=== PATIENT | male | born 1930 | race Caucasian/White ===

== ENCOUNTER → 2016-08-09 | Outpatient (POV) | LOC: OUTPT 00:01 | PROVIDERS: ATTEND Otolaryngology | DX: H91.90 Unspecified hearing loss, unspecified ear (principal) | CPT/HCPCS: 92557; 92567 ==

== ENCOUNTER 2017-02-07 15:00 | Outpatient (RCR) ==
--- NOTE | 2017-01-31 10:31 | RS.OPPTEV2 ---
Date of Note: 01/29/17 Visit #: 1 Date of Evaluation: 01/29/17 Payer Source: MEDICARE Treatment Diagnosis: Gait abnormality, LE weakness, recent falls Current Subjective/complaints:: Mr. Bruno reports his family thinks he is having trouble walking. Admits to having 3-4 falls, one in the past month. States he is using a rolling walker for safety, because he does not have confidence in his walking. States he performs several exercises every day and [place] [facility] Reports using a rolling walker in his apartment and in the community. States he continues to drive. Reports he knows that he does not clear his feet well when walking. He lives [place] [facility]. He denies any vision problems or dizziness. He asks if he could be shown exercise to work on at home. 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 Smoking Status: Never smoker Hx Home Medications: None Patient's Goals: His goal is to gain strength in his legs and walk with increased safety. Functional Outcome Measure Tinetti: 13 (13/28=53.6% impairment) - G Codes & Severity Modifier G Codes & Modifier: Mob current Ck. Mob goal CJ Source of G Code score: Tinetti Assessment Observation - Observation Posture: Forward Head, Rounded Shoulders, Decreased Lumbar Lordosis Gait - Gait Pattern Gait Comments: Patient ambulates with a rolling walker. He demonstrates a flexed forward posture, decreased stride length, decreased step length, a Narrow ZHEN, inconsistent foot clearance during swing phase, and decreased heelstrike bilaterally. Without an assistive device, w/ TRAPPER BIRD, he demonstrates the above deviations as well as a more flexed posture and lacks reciprocal arm swing. General Range of Motion: UE and LE AROM is WFL's. Muscle Strength: Muscle strength throughout right LE is 4+/5. Left LE is 4/5 at the hip, 4 to 4+/5 knee, 4/5 ankle. Sensation - Sensation Right Lower Extremity: Intact/Normal Left Lower Extremity: Intact/Normal Balance - Sitting Balance Static Sitting Balance: Good Dynamic Sitting Balance: Good - Standing Balance Static Standing Balance: Good (-) Dynamic Standing Balance: Fair - Comments Balance Assessment Comments: Decreased balance reaction to posterior displacement in standing. Coordination - Tests Bilateral Heel to Gooden: Normal/Intact Toe Tapping: Normal/Intact Interventions - Exercise/Activities/Manual Therapy Exercises/Activities: Patient instructed in exercises to begin at home: seated hip flexion, supine SLR's, seated trunk anterior/posterior weight shifting. Manual Therapy: NA HOME EXERCISE PROGRAM: seated hip flexion, supine SLR's, seated trunk anterior/ posterior weight shifting. - Charges Total Direct Minutes: 55 mins Total Treatment Time: 55 mins Procedures billed for this date of service:: EVAL medium complexity Assessment Assessment: Patient presents to therapy with a diagnosis of altered gait. He reports leg weakness, the need for a rolling walker to avoid falling, and concern of his children about his safety with walking. He has had a history of falls, with a recent fall in the past 30 days. He demonstrates weakness in the left LE and several gait deviations with ambulation. He presents to be at a high risk for falls per Tinetti Assessment. Discussed coming to therapy for a few visits to focus on safety and also giving him exercises to work on specific areas that will improve his mobility and ambulation. He demonstrates potential to benefit from strengthening and education to address the factors that put him at a high risk for falls. Patient Education: Education of diagnosis, Home Exercise Program, Home Safety, Activity Modification, Education of Plan of Care Rehab Potential: Good Short Term Goals Goal #1: Patient independent in basic HEP. Goal to be met by: 02/13/17 Goal #2: Left hip and ankle strength 4+/5. Goal to be met by: 02/13/17 Goal #3: Pt will demo. consistent foot clearance during ambulation in the department Goal to be met by: 02/13/17 Urban Designer Goals Goal #1: Pt knows HEP and to continue ex's to maintain functional level at D/C. Goal to be met by: 03/11/17 Goal #2: Score on Tinetti Assessment improved to 20/28. Goal to be met by: 03/11/17 Goal #3: Pt will amb. community distances with RW with good safety. Goal to be met by: 03/11/17 Goal #4: Pt will report improved confidence in safety with ambulation. Goal to be met by: 03/11/17 Plan - Treatment to be Provided Procedures: Therapeutic Exercises, Therapeutic Activity, Neuromuscular Rehab, Patient Education Modalities: No Modalities - Treatment Plan Frequency: 2 X week Duration: 4 weeks ORDER # VISITS AND/OR THROUGH DATE: 03/11/17 - Treatment Code (1) Gait abnormality Comments: R26.9 (2) Leg weakness Qualifiers: Laterality: bilateral Qualified Description: Weakness of both lower extremities Qualifier Code(s): (R29.898) Other symptoms and signs involving the musculoskeletal system (3) History of fall within past 90 days Comments: Z91.81
--- NOTE | 2017-02-02 11:37 | RS.OPPTDN ---
Subjective Date of Note: 02/02/17 Visit #: 2 Date of Evaluation: 01/29/17 Payer Source: MEDICARE Treatment Diagnosis: Gait abnormality, LE weakness, recent falls Current Subjective/complaints:: Patient reports he is working on HEP and feels like the added exercises today will help his strength and balance. Patient is adamant about only attending one more session as he feels he should be able to continue HEP. Interventions - Exercise/Activities/Manual Therapy Exercises/Activities: Began with mat exercises with SLR, alt hip flexion, isometric hip add. Reviewed sitting hip flexion and weight shifting. Began green theraband for scapular retraction in sitting. In standing at handrail, mini-squats, marching, and toe-ups. Reviewed safety with gait with RW and with transfers. Discussed postural correction. Patient given copies of new exercises for HEP and therabands. Total minutes of Exercise: 24mins Manual Therapy: NA HOME EXERCISE PROGRAM: seated hip flexion, supine SLR's, seated trunk anterior/ posterior weight shifting. In supine alt hip flexion, isometric hip flexion, and isometric hip add. In standing at kitchen counter, mini-squats, marching, and toe-ups. - Charges Total Direct Minutes: 24mins Total Treatment Time: 30mins Procedures billed for this date of service:: EX2 Assessment: Patient attentive with education of HEP, balance, and safety. He is motivated to be consistent with HEP. Patient Education: Education of diagnosis, Home Exercise Program, Home Safety, Activity Modification Patient demonstrates compliance with HEP?: Yes Short Term Goals Goal #1: Patient independent in basic HEP. Goal to be met by: 02/13/17 (75%) Progress towards Goal:: Progressing Goal #2: Left hip and ankle strength 4+/5. Goal to be met by: 02/13/17 Progress towards Goal:: Progressing Goal #3: Pt will demo. consistent foot clearance during ambulation in the department Goal to be met by: 02/13/17 Progress towards Goal:: Progressing Lifestyle Coordinator Goals Goal #1: Pt knows HEP and to continue ex's to maintain functional level at D/C. Goal to be met by: 03/11/17 Progress towards goal: Progressing Goal #2: Score on Tinetti Assessment improved to 20/28. Goal to be met by: 03/11/17 Goal #3: Pt will amb. community distances with RW with good safety. Goal to be met by: 03/11/17 Progress towards goal: Progressing Goal #4: Pt will report improved confidence in safety with ambulation. Goal to be met by: 03/11/17 Progress towards goal: Progressing Comments: Has increased confidence with RW. Plan PLAN OF CARE EXPIRES ON:: 03/11/17 ORDER # VISITS AND/OR THROUGH DATE: 03/11/17 PLAN: Progress Exercises (See patient next week to review and progress HEP.)
--- NOTE | 2017-02-07 15:54 | RS.OPPTDN ---
Subjective Date of Note: 02/07/17 Visit #: 3 Date of Evaluation: 01/29/17 Payer Source: MEDICARE Treatment Diagnosis: Gait abnormality, LE weakness, recent falls Current Subjective/complaints:: Patient reports he is working on current HEP and feels he can continue on his own. States he mainly wanted a good HEP and feels he is ready for discharge. Interventions - Exercise/Activities/Manual Therapy Exercises/Activities: Mat exercises with SLR, alt hip flexion, isometric hip add. Green theraband for resistive hip abduction. Reviewed sitting hip flexion and weight shifting. Reveiwed standing mini-squats, marching, and toe-ups. Discussed safety with gait with RW and with transfers. Total minutes of Exercise: 20mins Manual Therapy: NA HOME EXERCISE PROGRAM: seated hip flexion, supine SLR's, seated trunk anterior/ posterior weight shifting. In supine alt hip flexion, isometric hip flexion, and isometric hip add. In standing at kitchen counter, mini-squats, marching, and toe-ups. - Objective Findings Observations,measurements,etc.: FOM scale not reassessed as patient requests early discharge with HEP. - Charges Total Direct Minutes: 20mins Total Treatment Time: 20mins Procedures billed for this date of service:: EX Assessment: Patient requests to stop PT at this time as he feels he can continue basic HEP. Patient Education: Home Exercise Program, Home Safety, Activity Modification Patient demonstrates compliance with HEP?: Yes Short Term Goals Goal #1: Patient independent in basic HEP. Goal to be met by: 02/13/17 (100%) Progress towards Goal:: Met Goal #2: Left hip and ankle strength 4+/5. Goal to be met by: 02/13/17 Progress towards Goal:: Progressing Goal #3: Pt will demo. consistent foot clearance during ambulation in the department Goal to be met by: 02/13/17 Progress towards Goal:: Met Alf Goals Goal #1: Pt knows HEP and to continue ex's to maintain functional level at D/C. Goal to be met by: 03/11/17 (100%) Progress towards goal: Met Goal #2: Score on Tinetti Assessment improved to 20/28. Goal to be met by: 03/11/17 Comments: Not assessed Goal #3: Pt will amb. community distances with RW with good safety. Goal to be met by: 03/11/17 Progress towards goal: Progressing Goal #4: Pt will report improved confidence in safety with ambulation. Goal to be met by: 03/11/17 Progress towards goal: Met Plan PLAN OF CARE EXPIRES ON:: 03/11/17 ORDER # VISITS AND/OR THROUGH DATE: 03/11/17 PLAN: Plan for Discharge (Discharge at patient request. Patient to continue HEP. )
--- NOTE | 2017-02-12 14:54 | RS.QUICKDC ---
Discharge from PT Date of Discharge: 02/07/17 Number of Visits: 3 Reason for Discharge: Patient insisted on attending therapy only for HEP intruction. States he feels he is independent with exercises and will continue them on his own. He demonstrates good safety awareness with ambulation with his RW and does demonstrate the ability to perform HEP independently. Demonstrates no change of G codes: Mobilty goal CJ, Mobility D/C CK. Patient discharged at this time with HEP per his request.
== END 2017-02-12 ==
PROVIDERS: ATTEND Family Medicine
DX: R26.9 Unspecified abnormalities of gait and mobility (principal)

== ENCOUNTER 2017-12-24 06:41 | Day surgery (SDC) ==
[2017-12-24] MEDS: TETRACAINE 0.5% UNIT-DOSE OP PRN ×3 (07:23→08:13)
[2017-12-24] MEDS: AK-DILATE 10% OPTH SOL OP PRN ×3 (07:23→07:33)
[2017-12-24] MEDS: CYCLOGYL 2% OPTH OP PRN ×3 (07:23→07:33)
[2017-12-24] MEDS: OCUFEN 0.03% OPTH SOL OP PRN ×2 (07:24→07:38)
[2017-12-24] MEDS ORDERED: LIDOCAINE 1% 20 ML MDV ID STA (07:25)
[2017-12-24 07:37] VITALS: BP 133/73
[2017-12-24] MEDS ORDERED: DIAMOX PO STA ×4 (07:38→15:43)
[2017-12-24] MEDS ORDERED: BETADINE OPTH PREP OP ONE (07:38)
[2017-12-24] MEDS ORDERED: SUBLIMAZE ONE (08:10)
[2017-12-24] MEDS ORDERED: VERSED ONE (08:10)
[2017-12-24] MEDS ORDERED: LIDOCAINE HCL 1% SDV INJ PRN (08:20)
[2017-12-24] MEDS ORDERED: ADRENALIN 1:1000 SDV IR STA (08:20)
[2017-12-24] MEDS ORDERED: BSS WITH EPINEPHRINE OP ONE (08:21)
[2017-12-24] MEDS ORDERED: DIAMOX ONE (08:40)
[2017-12-24] MEDS ORDERED: DIAMOX PO ONE (09:09)
[2017-12-24 13:07] VITALS: TEMP 97.6
--- NOTE | 2017-12-25 18:16 | OP ---
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 POSTOPERATIVE DIAGNOSIS: SAME. OPERATION PHACOEMULSIFICATION ASPIRATION OF CATARACT LEFT EYE. PLACEMENT OF POSTERIOR CHAMBER LENS. PHACO TIME 55.5 SECONDS AT 13% POWER. LENS MODEL TECHAYDEE [id number]. DIOPTER +20.0D. TECHNIQUE: CLEAR CORNEA. ANESTHESIA: TOPICAL ANESTHESIA W/ANESTHESIA MONITORING. OPERATIVE REPORT: Topical anesthesia consisting of Tetracaine was applied to the cornea and Xylocaine Methyl Paraben free of MFP was injected intracamerally into the anterior chamber. The patient was then brought into the operating room , prepped and draped in the usual ophthalmic manner. A lid speculum was placed and the operating microscope was used. A paracentesis was made at the 3 o' clock position. A clear corneal incision was made just out to the limbus. The anterior chamber was entered just inside the clear cornea. Viscoelastic was injected into the anterior chamber. A capsulotomy was performed with a bent # 27 gauge needle. Phacoemulsification was then performed in the posterior chamber. After completion of the phacoemulsification, residual cortical material was aspirated with the irrigation-aspiration system. The posterior capsule was polished. Viscoelastic was injected into the anterior and posterior chambers to inflate the capsular bag. Lens were placed via an Unfolder system and stabilized in the bag. Viscoelastic was removed from the anterior chamber. The wound was checked for any leakage. The four sponges were removed from the fornix. Topical antibiotic steroid and nonsteroidal drops were also applied to the cornea. A Persaud shield was applied. The patient left the operating room in good condition without any complications. INTRAOPERATIVE MEDICATIONS: Xylocaine Methyl Paraben Free MPF MTDD
== END 2017-12-24 09:10 | disposition home or self-care (01) ==
LOC: SURG 06:41
PROVIDERS: ATTEND Ophthalmology
DX: H25.13 Age-related nuclear cataract, bilateral (principal)

== ENCOUNTER 2018-01-21 08:19 | Day surgery (SDC) ==
[2018-01-21] MEDS: CYCLOGYL 2% OPTH OP PRN ×3 (09:15→09:26)
[2018-01-21] MEDS: TETRACAINE 0.5% UNIT-DOSE OP PRN ×3 (09:15→11:29)
[2018-01-21] MEDS: AK-DILATE 10% OPTH SOL OP PRN ×3 (09:16→09:26)
[2018-01-21] MEDS: OCUFEN 0.03% OPTH SOL OP PRN ×2 (09:16→09:30)
[2018-01-21 09:23] VITALS: TEMP 97.1
[2018-01-21] MEDS ORDERED: BETADINE OPTH PREP OP ONE (09:24)
[2018-01-21] MEDS ORDERED: DIAMOX PO STA (09:24)
[2018-01-21] MEDS ORDERED: SUBLIMAZE ONE (11:20)
[2018-01-21] MEDS ORDERED: VERSED ONE (11:20)
[2018-01-21] MEDS ORDERED: BSS WITH EPINEPHRINE OP ONE (11:35)
[2018-01-21] MEDS ORDERED: LIDOCAINE HCL 1% SDV INJ PRN (11:35)
[2018-01-21] MEDS ORDERED: DIAMOX ONE (12:25)
--- NOTE | 2018-01-22 09:27 | OP ---
PREOPERATIVE DIAGNOSIS: ADVANCED NUCLEAR SCLEROTIC CATARACT, RIGHT EYE. POSTOPERATIVE DIAGNOSIS: SAME. OPERATION PHACOEMULSIFICATION ASPIRATION OF CATARACT RIGHT EYE. PLACEMENT OF POSTERIOR CHAMBER LENS. PHACO TIME 44.9 SECONDS AT 4% POWER. LENS MODEL TECHAYDEE [id number]. DIOPTER +20.0 D. TECHNIQUE: CLEAR CORNEA. ANESTHESIA: TOPICAL ANESTHESIA W/ANESTHESIA MONITORING. OPERATIVE REPORT: Topical anesthesia consisting of Tetracaine was applied to the cornea and Xylocaine Methyl Paraben free of MFP was injected intracamerally into the anterior chamber. The patient was then brought into the operating room , prepped and draped in the usual ophthalmic manner. A lid speculum was placed and the operating microscope was used. A paracentesis was made at the 3 o' clock position. A clear corneal incision was made just out to the limbus. The anterior chamber was entered just inside the clear cornea. Viscoelastic was injected into the anterior chamber. A capsulotomy was performed with a bent # 27 gauge needle. Phacoemulsification was then performed in the posterior chamber. After completion of the phacoemulsification, residual cortical material was aspirated with the irrigation-aspiration system. The posterior capsule was polished. Viscoelastic was injected into the anterior and posterior chambers to inflate the capsular bag. Lens were placed via an Unfolder system and stabilized in the bag. Viscoelastic was removed from the anterior chamber. The wound was checked for any leakage. The four sponges were removed from the fornix. Topical antibiotic steroid and nonsteroidal drops were also applied to the cornea. A Persaud shield was applied. The patient left the operating room in good condition without any complications. INTRAOPERATIVE MEDICATIONS: Xylocaine Methyl Paraben Free MPF MTDD
[2018-01-24 11:58] VITALS: BP 132/67
== END 2018-01-21 12:30 | disposition home or self-care (01) ==
LOC: SURG 08:19
PROVIDERS: ATTEND Ophthalmology
DX: H25.043 Posterior subcapsular polar age-related cataract, bilateral (principal); H25.013 Cortical age-related cataract, bilateral

== ENCOUNTER 2018-01-25 04:05 | Emergency (ER) ==
[2018-01-25 04:22] VITALS: BP 146/75; TEMP 97.1; BMI 22.6
[2018-01-25] MEDS ORDERED: SODIUM CHLORIDE 500 ML IV STA (04:46)
[2018-01-25] MEDS ORDERED: NITROSTAT SL STA (04:54)
[2018-01-25] MEDS ORDERED: GI COCKTAIL PO STA (04:56)
[2018-01-25] MEDS ORDERED: PROTONIX IV IVP STA (04:56)
[2018-01-25] MEDS ORDERED: ZOFRAN 4 MG/2 ML ONE (05:02)
[2018-01-25] MEDS ORDERED: ZOFRAN 4 MG/2 ML IVP STA (05:02)
[2018-01-25] MEDS ORDERED: PHENERGAN 25 MG/ML VIAL 25 MG in SODIUM CHLORIDE 50 ML IV STA (05:36)
[2018-01-25] MEDS ORDERED: DEMEROL 100 MG/ML SYRINGE IVP STA (05:36)
[2018-01-25] MEDS ORDERED: PHENERGAN 25 MG/ML VIAL ONE (05:38)
[2018-01-25] MEDS ORDERED: SODIUM CHLORIDE 50 ML IV ONE (06:04)
--- NOTE | 2018-01-25 06:08 | CT ---
EXAM: CT abdomen pelvis without intravenous contrast 01/25/2018. Sagittal and coronal reformatted i bob HISTORY: Abdominal pain COMPARISON: None. FINDINGS: Small left pleural effusion with overlying atelectasis and/or pneumonia. [id number] e hiatal hernia. The liver shows no acute abnormality. Gallstone. No pericholecystic fluid. The adrenal glands and kidneys show no acute abnormality. The spleen and pancreas show no acute abnormality. There is no bowel obstruction. Unremarkable urinary bladder. No free air. Trace free fluid. Normal appendix. Catheter tubing is present within the abdomen and pelvis.. Correlate clinically. IMPRESSION: 1. Small left pleural effusion with overlying atelectasis and/or pneumonia. 2. [id number] hiatal hernia. 3. Gallstone. 4. Catheter tubing is present within the abdomen and pelvis. Correlate clinically. 5. No urinary or bowel obstruction and normal appendix. 6. No acute inflammatory process identified within the limitation of a noncontrast enhanced examinat ion.
--- NOTE | 2018-01-25 07:23 | DI ---
EXAM: Chest one view, frontal view only. HISTORY: Chest pain. COMPARISON: 04/17/2012. FINDINGS: Right-sided ventriculoperitoneal shunt catheter is intact in its visualized portions. Hea rt size is normal. There is consolidation at the left lung base with blunting left costophrenic angl e. The lungs are otherwise clear save for calcified granulomatous changes. No pneumothorax identifi ed. Increased opacity in the midline retrocardiac region noted. No acute osseous abnormality identi fied. IMPRESSION: 1. Left basilar consolidation and small left pleural effusion. 2. Hiatal hernia.
--- NOTE | 2018-01-25 07:44 | ED.PDOC ---
General ED Provider: Dr. ZULEIKA TRAVIS Chief Complaint: Nausea/Vomiting Stated Complaint: woke up with epigastric pain, burning and sharp type of pain. and took 3 ASA. started dry heaving did not vomit, also has mid back pain between shoulder blades,. In ER he vomited Time Seen by Physician: 07:41 Mode of Arrival: Wheelchair Information Source: Patient, Family Primary Care Provider: KRISTIE IRENE Nursing and Triage Documentation Reviewed and Agree: Yes Does patient meet sepsis criteria?: No If yes, has appropriate treatment been initiated?: No System Inflammatory Response Syndrome: Not Applicable Sepsis Protocol: For patient's 13 years and over: Temp is 96.8 and below OR 101 and greater Pulse >90 BPM Resp >20/minute Acutely Altered Mental Status Are patient's symptoms suggestive of a new infection, such as: -Pneumonia -Skin, Soft Tissue -Endocarditis -UTI -Bone, Joint Infection -Implantable Device -Acute Abdominal Infection -Wound Infection -Meningitis -Blood Stream Catheter Infection -Unknown GI Complaint Exam - Abdominal Pain Complaint/Exam Onset: Gradual Symptoms Are: Still present Initial Severity: Moderate Current Severity: Moderate Location of Pain: Epigastric Character: Reports: Sharp, Burning Aggravating: Reports: None Alleviating: Reports: None Associated Signs and Symptoms: Reports: Back pain, Nausea, Vomiting, Decreased activity. Denies: Diaphoresis, Fever, Cough, Chest pain, Dizziness, Constipation, Blood in stool, Dysuria, Urinary frequency, Decreased urine output , Decreased appetite, Discharge, Diarrhea AAA Risk Factors: Reports: None Cardiac Risk Factors: Reports: None, Hypertension, Elevated lipids Testicular Torsion Risk Factors: Reports: None Surgical Obstruction Risk Factors: Reports: None Related Surgical History: Reports: None Abdominal Findings: Absent: Pulsatile mass, Abdominal distention, Unequal femoral pulses Differential Diagnoses: AMI, GB, PUD Quality Indicators for AMI: EKG in 10min., ASA Given if indicated (not given pt took 3 pills.) Review of Systems - Review Of Systems Constitutional: Reports: No symptoms Eyes: Reports: No symptoms Ears, Nose, Mouth, Throat: Reports: No symptoms Respiratory: Reports: No symptoms Cardiac: Reports: No symptoms GI: Reports: No symptoms, Abdominal pain, Nausea, Vomiting : Reports: No symptoms Musculoskeletal: Reports: Back pain Skin: Reports: No symptoms Neurological: Reports: No symptoms Endocrine: Reports: No symptoms Hematologic/Lymphatic: Reports: No symptoms All Other Systems: Reviewed and Negative Past Medical History - Past Medical History Previously Healthy: Yes Endocrine: Reports: Dyslipidemia Cardiovascular: Reports: Hypertension, A-Fib Respiratory: Reports: None Hematological: Reports: None Gastrointestinal: Reports: GERD Genitourinary: Reports: None Neuro/Psych: Reports: None Musculoskeletal: Reports: None Cancer: Reports: None - Surgical History General Surgical History: Reports: Other (hernia repair) - Family History Family History: Reports: None - Social History Smoking Status: Never smoker Hx Substance Use: No Alcohol Screening: None - Immunizations Tetanus Shot up to Date: Yes Physical Exam - Physical Exam Appearance: Ill-appearing, Thin Ill-appearing: Moderate Eyes: EOMI, Conjunctiva clear ENT: Ears normal, Nose normal, Oropharynx normal Respiratory: Airway patent, Breath sounds clear, Breath sounds equal, Respirations nonlabored Cardiovascular: RRR, Pulses normal, No rub, No murmur GI/: Tender (epigastric) Musculoskeletal: Normal strength, ROM intact, No edema, No calf tenderness Skin: Warm, Dry, Normal color Neurological: Sensation intact, Motor intact, Reflexes intact, Cranial nerves intact, Alert, Oriented Psychiatric: Affect appropriate, Mood appropriate Interpretation - Radiology Interpretation Radiology Interpretation By: Radiologist Radiology Results: Positive (lL pneumonia) Exam Interpreted: CT Scan - EKG Interpretation Time of EKG #1: 05:00 Rate: Normal (afib, lAFblock) Rhythm: Sinus Re-Evaluation - Re-Evaluation Time of Re-Evaluation: 06:40 (sleeping) Status: Improved Physician Notification - Case Discussed Time of Notification: 07:00 (Dr Jennings) Time of Notification: 07:49 (Dr Isabelle Jackson) Critical Care Note - Critical Care Note Total Time (mins): 30 Course - Course Hematology/Chemistry: 01/25/18 05:10 01/25/18 05:10 Orders, Labs, Meds: Lab Review 01/25/18 01/25/18 01/25/18 05:10 05:10 05:10 WBC 8.19 RBC 5.28 Hgb 12.1 L Hct 38.4 L MCV 72.7 L MCH 22.9 L MCHC 31.5 L RDW Coeff of Baron 15.9 H Plt Count 352 Immature Gran % (Auto) 0.4 Neut % (Auto) 77.1 Lymph % (Auto) 11.4 [place] % (Auto) 8.4 Eos % (Auto) 1.8 Baso % (Auto) 0.9 Immature Gran # (Auto) 0.0 Neut # (Auto) 6.3 Lymph # (Auto) 0.9 [place] # (Auto) 0.7 Eos # (Auto) 0.2 Baso # (Auto) 0.1 Sodium 134 L Potassium 4.2 Chloride 103 Carbon Dioxide 22 L Anion Gap 13.2 BUN 17 Creatinine 0.88 Estimated GFR (MDRD) 82.00 BUN/Creatinine Ratio 19.31 Glucose 102 Calcium 9.0 Total Bilirubin 0.4 AST 16 ALT 11 L Alkaline Phosphatase 90 Total Creatine Kinase 51 Troponin I 0.0220 B-Natriuretic Peptide 287 H Total Protein 7.6 Albumin 3.0 L Globulin 4.6 Albumin/Globulin Ratio 0.65 Amylase Lipase Urine Color Urine Clarity Urine pH Ur Specific [place] Urine Protein Urine Glucose (UA) Urine Ketones Urine Blood Urine Nitrite Urine Bilirubin Urine Urobilinogen Ur Leukocyte Esterase 01/25/18 01/25/18 05:10 05:30 WBC RBC Hgb Hct MCV MCH MCHC RDW Coeff of [place] Plt Count Immature Gran % (Auto) Neut % (Auto) Lymph % (Auto) [place] % (Auto) Eos % (Auto) Baso % (Auto) Immature Gran # (Auto) Neut # (Auto) Lymph # (Auto) [place] # (Auto) Eos # (Auto) Baso # (Auto) Sodium Potassium Chloride Carbon Dioxide Anion Gap BUN Creatinine Estimated GFR (MDRD) BUN/Creatinine Ratio Glucose Calcium Total Bilirubin AST ALT Alkaline Phosphatase Total Creatine Kinase Troponin I B-Natriuretic Peptide Total Protein Albumin Globulin Albumin/Globulin Ratio Amylase 22 L Lipase 18 Urine Color Yellow Urine Clarity Slightly Urine pH 5.5 Ur Specific [place] 1.020 Urine Protein Negative Urine Glucose (UA) Negative Urine Ketones Negative Urine Blood Negative Urine Nitrite Negative Urine Bilirubin Negative Urine Urobilinogen 0.2 Ur Leukocyte Esterase Negative Orders Category Date Time Status EKG-(ED ONLY) Stat CARDIO 01/25/18 04:46 Completed ED IV/MEDIPORT/POWERPORT .ONCE EMERGENCY 01/25/18 04:46 Active AMYLASE Stat LAB 01/25/18 05:10 Completed B-TYPE NATRIURETIC PEPTIDE Stat LAB 01/25/18 05:10 Completed CBC W/ AUTO DIFF Stat LAB 01/25/18 05:10 Completed COMPREHENSIVE METABOLIC PANEL Stat LAB 01/25/18 05:10 Completed CREATINE KINASE Stat LAB 01/25/18 05:10 Completed LIPASE Stat LAB 01/25/18 05:10 Completed TROPONIN I Stat LAB 01/25/18 05:10 Completed UA [URINALYSIS C & S IF INDICATED] Stat LAB 01/25/18 05:30 Completed 0.9 % Sodium Chloride [Saline Flush] MEDS 01/25/18 04:46 Active 1 syr IVF PRN PRN Mag-Al Plus//Lidocaine [Gi Cocktail] MEDS 01/25/18 04:56 Discontinued 30 ml PO ONCE STA Meperidine HCl/Pf [Demerol 100 mg/ml Syringe] MEDS 01/25/18 05:36 Discontinued 50 mg IVP ONCE STA Nitroglycerin [Nitrostat] MEDS 01/25/18 04:54 Discontinued 0.4 mg SL ONCE STA Ondansetron HCl/Pf [Zofran 4 mg/2 ml] MEDS 01/25/18 05:02 Discontinued 4 mg .ROUTE .STK-MED ONE Ondansetron HCl/Pf [Zofran 4 mg/2 ml] MEDS 01/25/18 05:02 Discontinued 4 mg IVP ONCE STA Pantoprazole Sodium [Protonix IV] MEDS 01/25/18 04:56 Discontinued 40 mg IVP ONCE STA Promethazine HCl [Phenergan 25 mg/ml Vial] MEDS 01/25/18 05:38 Discontinued 25 mg .ROUTE .STK-MED ONE Promethazine HCl [Phenergan 25 mg/ml Vial] 25 mg MEDS 01/25/18 05:36 Discontinued 0.9 % Sodium Chloride [Sodium Chloride] 50 ml IV ONCE Sodium Chloride 0.9% [Sodium Chloride] 500 ml MEDS 01/25/18 04:46 Active IV 30 mls/hr CHEST, 1V AP ONLY Stat RADS 01/25/18 04:[address] ABDOMEN/PELVIS WO CONTRAST Stat RADS 01/25/18 05:02 Completed Medications Generic Name Dose Route Start Last Admin Trade Name Freq PRN Reason Stop Dose Admin Sodium Chloride 500 mls @ 30 mls/hr 01/25/18 04:46 01/25/18 05:04 Sodium Chloride IV 01/25/18 21:25 30 mls/hr .[id number] STA Administration Sodium Chloride 1 syr 01/25/18 04:46 01/25/18 05:04 Saline Flush IVF 1 syr PRN PRN Administration To flush IV Discontinued Medications Generic Name Dose Route Start Last Admin Trade Name [place] PRN Reason Stop Dose Admin Al Hydroxide/Mg Hydroxide 30 ml 01/25/18 04:56 01/25/18 05:03 Gi Cocktail PO 01/25/18 04:57 30 ml ONCE STA Administration Promethazine HCl 25 mg/ Sodium 51 mls @ 75 mls/hr 01/25/18 05:36 01/25/18 06: 04 Chloride IV 01/25/18 06:16 Not Given ONCE STA Meperidine HCl 50 mg 01/25/18 05:36 01/25/18 06:04 Demerol 100 Mg/Ml Syringe IVP 01/25/18 05:37 50 mg ONCE STA Administration Nitroglycerin 0.4 mg 01/25/18 04:54 01/25/18 05:04 Nitrostat SL 01/25/18 04:55 0.4 mg ONCE STA Administration Ondansetron HCl 4 mg 01/25/18 05:02 01/25/18 05:05 Zofran 4 Mg/2 Ml IVP 01/25/18 05:03 4 mg ONCE STA Administration Pantoprazole Sodium 40 mg 01/25/18 04:56 01/25/18 05:03 Protonix Iv IVP 01/25/18 04:57 40 mg ONCE STA Administration Vital Signs: Temp Pulse Resp BP Pulse Ox 01/25/18 04:08 97.1 F L 82 18 146/75 H 99 Departure - Departure Time of Disposition: 07:48 Disposition: TSF OTHER Discharge Problem: Chest pain Qualifiers: Chest pain type: precordial pain Qualified Code(s): R07.2 - Precordial pain Abdominal pain Qualifiers: Abdominal location: epigastric Qualified Code(s): R10.13 - Epigastric pain Instructions: Chest Pain (DC) Condition: Stable Pt referred to PMD for follow-up: No IPMP verified?: No Allergies/Adverse Reactions: Allergies No Known Allergies Allergy (Verified 01/25/18 04:21) Home Medications: Ambulatory Orders Aspirin [Aspir 81] 81 mg PO DAILY 08/09/16 Pravastatin Sodium 40 mg PO DAILY 08/09/16 Furosemide [Lasix] 20 mg PO DAILY 12/21/17 Lisinopril 20 mg PO DAILY 12/21/17 Pantoprazole Sodium [Protonix] 1 tab PO DAILY 12/21/17 Diphenoxylate HCl/Atropine [Diphenoxylate-Atrop 2.5-0.025] 1 tab PO PRN PRN 12/31 Disposition Discussed With: Patient, Family
--- NOTE | 2018-01-25 07:45 | ED.PDOC ---
General ED Provider: Dr. KRISTIE MCCALL MD Chief Complaint: Nausea/Vomiting Mode of Arrival: Wheelchair Information Source: Patient, Family Primary Care Provider: KRISTIE IRENE Sepsis Protocol: For patient's 13 years and over: Temp is 96.8 and below OR 101 and greater Pulse >90 BPM Resp >20/minute Acutely Altered Mental Status Are patient's symptoms suggestive of a new infection, such as: -Pneumonia -Skin, Soft Tissue -Endocarditis -UTI -Bone, Joint Infection -Implantable Device -Acute Abdominal Infection -Wound Infection -Meningitis -Blood Stream Catheter Infection -Unknown Past Medical History - Social History Smoking Status: Never smoker Hx Substance Use: No Alcohol Screening: None - Immunizations Tetanus Shot up to Date: Yes Course - Course Hematology/Chemistry: 01/25/18 05:10 01/25/18 05:10 Orders, Labs, Meds: Lab Review 01/25/18 01/25/18 01/25/18 05:10 05:10 05:10 WBC 8.19 RBC 5.28 Hgb 12.1 L Hct 38.4 L MCV 72.7 L MCH 22.9 L MCHC 31.5 L RDW Coeff of Baron 15.9 H Plt Count 352 Immature Gran % (Auto) 0.4 Neut % (Auto) 77.1 Lymph % (Auto) 11.4 [place] % (Auto) 8.4 Eos % (Auto) 1.8 Baso % (Auto) 0.9 Immature Gran # (Auto) 0.0 Neut # (Auto) 6.3 Lymph # (Auto) 0.9 [place] # (Auto) 0.7 Eos # (Auto) 0.2 Baso # (Auto) 0.1 Sodium 134 L Potassium 4.2 Chloride 103 Carbon Dioxide 22 L Anion Gap 13.2 BUN 17 Creatinine 0.88 Estimated GFR (MDRD) 82.00 BUN/Creatinine Ratio 19.31 Glucose 102 Calcium 9.0 Total Bilirubin 0.4 AST 16 ALT 11 L Alkaline Phosphatase 90 Total Creatine Kinase 51 Troponin I 0.0220 B-Natriuretic Peptide 287 H Total Protein 7.6 Albumin 3.0 L Globulin 4.6 Albumin/Globulin Ratio 0.65 Amylase Lipase Urine Color Urine Clarity Urine pH Ur Specific [place] Urine Protein Urine Glucose (UA) Urine Ketones Urine Blood Urine Nitrite Urine Bilirubin Urine Urobilinogen Ur Leukocyte Esterase 01/25/18 01/25/18 05:10 05:30 WBC RBC Hgb Hct MCV MCH MCHC RDW Coeff of Baron Plt Count Immature Gran % (Auto) Neut % (Auto) Lymph % (Auto) [place] % (Auto) Eos % (Auto) Baso % (Auto) Immature Gran # (Auto) Neut # (Auto) Lymph # (Auto) [place] # (Auto) Eos # (Auto) Baso # (Auto) Sodium Potassium Chloride Carbon Dioxide Anion Gap BUN Creatinine Estimated GFR (MDRD) BUN/Creatinine Ratio Glucose Calcium Total Bilirubin AST ALT Alkaline Phosphatase Total Creatine Kinase Troponin I B-Natriuretic Peptide Total Protein Albumin Globulin Albumin/Globulin Ratio Amylase 22 L Lipase 18 Urine Color Yellow Urine Clarity Slightly Urine pH 5.5 Ur Specific [place] 1.020 Urine Protein Negative Urine Glucose (UA) Negative Urine Ketones Negative Urine Blood Negative Urine Nitrite Negative Urine Bilirubin Negative Urine Urobilinogen 0.2 Ur Leukocyte Esterase Negative Orders Category Date Time Status EKG-(ED ONLY) Stat CARDIO 01/25/18 04:46 Completed ED IV/MEDIPORT/POWERPORT .ONCE EMERGENCY 01/25/18 04:46 Active AMYLASE Stat LAB 01/25/18 05:10 Completed B-TYPE NATRIURETIC PEPTIDE Stat LAB 01/25/18 05:10 Completed CBC W/ AUTO DIFF Stat LAB 01/25/18 05:10 Completed COMPREHENSIVE METABOLIC PANEL Stat LAB 01/25/18 05:10 Completed CREATINE KINASE Stat LAB 01/25/18 05:10 Completed LIPASE Stat LAB 01/25/18 05:10 Completed TROPONIN I Stat LAB 01/25/18 05:10 Completed UA [URINALYSIS C & S IF INDICATED] Stat LAB 01/25/18 05:30 Completed 0.9 % Sodium Chloride [Saline Flush] MEDS 01/25/18 04:46 Active 1 syr IVF PRN PRN Ceftriaxone Sodium [Rocephin] MEDS 01/25/18 08:01 Discontinued 1 gm IM ONCE STA Lidocaine HCl/Pf [Lidocaine HCl 1% Sdv] MEDS 01/25/18 08:01 Discontinued 2.1 ml IM ONCE STA Mag-Al Plus//Lidocaine [Gi Cocktail] MEDS 01/25/18 04:56 Discontinued 30 ml PO ONCE STA Meperidine HCl/Pf [Demerol 100 mg/ml Syringe] MEDS 01/25/18 05:36 Discontinued 50 mg IVP ONCE STA Nitroglycerin [Nitrostat] MEDS 01/25/18 04:54 Discontinued 0.4 mg SL ONCE STA Ondansetron HCl/Pf [Zofran 4 mg/2 ml] MEDS 01/25/18 05:02 Discontinued 4 mg .ROUTE .STK-MED ONE Ondansetron HCl/Pf [Zofran 4 mg/2 ml] MEDS 01/25/18 05:02 Discontinued 4 mg IVP ONCE STA Pantoprazole Sodium [Protonix IV] MEDS 01/25/18 04:56 Discontinued 40 mg IVP ONCE STA Promethazine HCl [Phenergan 25 mg/ml Vial] MEDS 01/25/18 05:38 Discontinued 25 mg .ROUTE .STK-MED ONE Promethazine HCl [Phenergan 25 mg/ml Vial] 25 mg MEDS 01/25/18 05:36 Discontinued 0.9 % Sodium Chloride [Sodium Chloride] 50 ml IV ONCE Sodium Chloride 0.9% [Sodium Chloride] 500 ml MEDS 01/25/18 04:46 Active IV 30 mls/hr CHEST, 1V AP ONLY Stat RADS 01/25/18 04:[address] ABDOMEN/PELVIS WO CONTRAST Stat RADS 01/25/18 05:02 Completed Medications Generic Name Dose Route Start Last Admin Trade Name Freq PRN Reason Stop Dose Admin Sodium Chloride 500 mls @ 30 mls/hr 01/25/18 04:46 01/25/18 05:04 Sodium Chloride IV 01/25/18 21:25 30 mls/hr .[id number] STA Administration Sodium Chloride 1 syr 01/25/18 04:46 01/25/18 05:04 Saline Flush IVF 1 syr PRN PRN Administration To flush IV Discontinued Medications Generic Name Dose Route Start Last Admin Trade Name Freq PRN Reason Stop Dose Admin Al Hydroxide/Mg Hydroxide 30 ml 01/25/18 04:56 01/25/18 05:03 Gi Cocktail PO 01/25/18 04:57 30 ml ONCE STA Administration Ceftriaxone Sodium 1 gm 01/25/18 08:01 Rocephin IM 01/25/18 08:02 ONCE STA Promethazine HCl 25 mg/ Sodium 51 mls @ 75 mls/hr 01/25/18 05:36 01/25/18 06: 04 Chloride IV 01/25/18 06:16 Not Given ONCE STA Lidocaine HCl 2.1 ml 01/25/18 08:01 Lidocaine Hcl 1% Sdv IM 01/25/18 08:02 ONCE STA Meperidine HCl 50 mg 01/25/18 05:36 01/25/18 06:04 Demerol 100 Mg/Ml Syringe IVP 01/25/18 05:37 50 mg ONCE STA Administration Nitroglycerin 0.4 mg 01/25/18 04:54 01/25/18 05:04 Nitrostat SL 01/25/18 04:55 0.4 mg ONCE STA Administration Ondansetron HCl 4 mg 01/25/18 05:02 01/25/18 05:05 Zofran 4 Mg/2 Ml IVP 01/25/18 05:03 4 mg ONCE STA Administration Pantoprazole Sodium 40 mg 01/25/18 04:56 01/25/18 05:03 Protonix Iv IVP 01/25/18 04:57 40 mg ONCE STA Administration Vital Signs: Temp Pulse Resp BP Pulse Ox 01/25/18 04:08 97.1 F L 82 18 146/75 H 99 Departure - Departure Disposition: TSF OTHER Discharge Problem: Chest pain Qualifiers: Chest pain type: precordial pain Qualified Code(s): R07.2 - Precordial pain Abdominal pain Qualifiers: Abdominal location: epigastric Qualified Code(s): R10.13 - Epigastric pain Instructions: Chest Pain (DC) Condition: Stable Allergies/Adverse Reactions: Allergies No Known Allergies Allergy (Verified 01/25/18 04:21) Home Medications: Ambulatory Orders Aspirin [Aspir 81] 81 mg PO DAILY 08/09/16 Pravastatin Sodium 40 mg PO DAILY 08/09/16 Furosemide [Lasix] 20 mg PO DAILY 12/21/17 Lisinopril 20 mg PO DAILY 12/21/17 Pantoprazole Sodium [Protonix] 1 tab PO DAILY 12/21/17 Diphenoxylate HCl/Atropine [Diphenoxylate-Atrop 2.5-0.025] 1 tab PO PRN PRN 12/31 Transfer Form Completed: Yes (Pt transferred to )
[2018-01-25] MEDS ORDERED: ROCEPHIN IM STA (08:01)
[2018-01-25] MEDS ORDERED: LIDOCAINE HCL 1% SDV IM STA (08:01)
[2018-01-25] MEDS ORDERED: ROCEPHIN 1 GM in SODIUM CHLORIDE 50 ML IV STA (08:18)
== END 2018-01-25 09:34 | disposition short-term general hospital (02) ==
LOC: ED 04:05
DX: R07.2 Precordial pain (principal); R10.13 Epigastric pain; R11.2 Nausea with vomiting, unspecified; I10 Essential (primary) hypertension; E78.5 Hyperlipidemia, unspecified; I48.91 Unspecified atrial fibrillation; K21.9 Gastro-esophageal reflux disease without esophagitis; Z79.899 Other long term (current) drug therapy
CPT/HCPCS: 36415; 80053; 81001; 82150; 82550; 83690; 83880; 84484; 85025; 93005; 93010; 96365; 96367; 96375; 99285